=== PATIENT | male | born 1950 | race African-American/Black ===

== ENCOUNTER 2022-09-05 11:54 | Inpatient (IN) | payer BC, MEDICAID ==
[~2022-09-05] VITALS: Ht 170.2 cm; Wt 69.4 kg
[2022-09-05 12:05] VITALS: BP_SYST 111
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
--- NOTE | 2022-09-05 12:55 | NUR ---
MD DR RAZA AT BEDSIDE
[2022-09-05] MEDS ORDERED: MORPHINE 4 MG INJ. 4 MG/ML VIAL IVP ONE (13:00)
[2022-09-05 13:22] LABS: BASOPHILS % (AUTO) 0.3 % (0.0-2.0); HEMATOCRIT 46.2 % (36-54); MEAN CORPUSCULAR HEMOGLOBIN 31 pg (27-31); MEAN CORPUSCULAR HGB CONC 32 % (32-36); MEAN CORPUSCULAR VOLUME 97 fL (79.0-98.0); MONOCYTES # (AUTO) 1.3 K/uL (0.0-1.0); MONOCYTES % (AUTO) 8.6 % (1.7-9.3); NEUTROPHILS # (AUTO) 12.1 K/uL (1.8-7.7); NEUTROPHILS % (AUTO) 78.1 % (40.0-70.0); PLATELET COUNT (AUTO) 166 K/uL (130-430); RED BLOOD CELL COUNT(AUTO) 4.79 MIL/uL (4.2-6.2); RED CELL DISTRIBUTION WIDTH 13.9 % (9.0-15.0); WHITE BLOOD COUNT (AUTO) 15.5 K/uL (4.8-10.8)
[2022-09-05 13:27] LABS: CALCIUM 8.7 mg/dL (8.4-11.0); CREATININE 1.49 mg/dL (0.55-1.30)
[2022-09-05 13:31] LABS: BILIRUBIN,URINE NEGATIVE (NEGATIVE); BLOOD, URINE NEGATIVE (NEGATIVE); COLOR,URINE YELLOW (YELLOW); GLUCOSE,URINE NEGATIVE (NEGATIVE); KETONES,URINE NEGATIVE (NEGATIVE); LEUKOCYTE ESTERASE ,URINE 1+ (NEGATIVE); NITRITE, URINE NEGATIVE (NEGATIVE); PH,URINE 5.5 (5.0-8.0); PROTEIN URINE TRACE (NEGATIVE)
[2022-09-05 13:33] LABS: CLARITY/URINE SLIGHTLY HAZY (CLEAR)
[2022-09-05 13:38] LABS: BACTERIA,URINE FEW /HPF (None Seen); RBC,URINE 0-3 /HPF (0-3)
[2022-09-05] MEDS ORDERED: cefTRIAXone 1 GM in D5W 50 ML IV ONE (14:15)
[2022-09-05] MEDS ORDERED: KETOROLAC TROMETHAMINE 30 MG VIAL IVP ONE (15:00)
[2022-09-05] MEDS ORDERED: cefTRIAXone 1 GM VIAL ONE (15:05)
[2022-09-05] MEDS ORDERED: NACL 0.9% 1,000 ML IV ONE (15:15)
--- NOTE | 2022-09-05 16:33 | NUR ---
pt stated he takes no home meds
[2022-09-05] MEDS ORDERED: ONDANSETRON HCL 4 MG/2 ML VIAL IVP PRN (19:15)
[2022-09-05] MEDS ORDERED: DOCUSATE SODIUM 100 MG CAPSULE PO PRN (19:15)
[2022-09-05] MEDS ORDERED: MAGNESIUM SULFATE 50 ML IV PRN (19:15)
[2022-09-05] MEDS ORDERED: MORPHINE 2 MG/ML INJ. SYRINGE IVP PRN ×2 (19:15)
[2022-09-05] MEDS ORDERED: LORazepam 2 MG/ML VIAL IVP PRN (19:15)
[2022-09-05] MEDS ORDERED: ZOLPIDEM TARTRATE 5 MG TABLET PO PRN (19:15)
[2022-09-05] MEDS ORDERED: ACETAMINOPHEN 325 MG TABLET PO PRN (19:15)
[2022-09-05] MEDS ORDERED: MUPIROCIN 2% TOPICAL OINTMENT 22 GM NS PRN (19:15)
[2022-09-05] MEDS ORDERED: POTASSIUM CHLORIDE 20 MEQ TAB.PRT.SR PO PRN (19:15)
--- NOTE | 2022-09-05 19:21 | NUR ---
Admit bed requested Patient will be admitted to care of . Admitted to MEDSURG unit. Diagnosis ACUTE EPIDIDYMITIS Inpatient (Yes or No) Y Observation (Yes or No) N Orientation concerns or request close to nursing station (Yes or No) N Covid Status NEG On vent or bipap NO Isolation requirements NO Needs a sitter NO From Home (Yes or if No enter name of facility) Y Requires Dialysis (Yes or No) N Med Rec Completed (Yes of No) PENDING
--- NOTE | 2022-09-05 19:24 | NUR ---
REPORT GIVEN TO GUSTAVO. PT KATELYN.
--- NOTE | 2022-09-05 19:31 | NUR ---
Received report from DARREL Trevizo; assuming care of patient at this time.
--- NOTE | 2022-09-05 19:55 | NUR ---
Patient A/Ox4, VSS, ambulatory, resp even and unlabored. Patient resting comfortably in bed with safety precautions in place and connected to monitor. Nad noted at this time.
--- NOTE | 2022-09-05 22:42 | NUR ---
Report received from DARREL James for continuity of care. Patient stable condition. Alert and oriented x4. No neuro deficits. Respiration even and unlabored. Patient c/o groin issues. Patient oriented to hospital unit. Patient able to follow instructions and move from gurney to bed. Vital signs stable. Endorsed to DARREL Dela Cruz for continuity of care.
--- NOTE | 2022-09-06 01:00 | NUR ---
Patient sleeping comfortably in bed with safety precautions in place and connected to monitor. Nad noted at this time.
--- NOTE | 2022-09-06 02:25 | NUR ---
Patient will be admitted to care of Dr Appiah. Admitted to Med Surg unit. Will go to room 132C. Belongings list completed. Complete and up to date summary report printed. SBAR report given to DARREL Reyes at bedside with opportunity for questions.
[2022-09-06 02:30] VITALS: BP_SYST 116
--- NOTE | 2022-09-06 04:37 | NUR ---
RECEIVED PT FROM ED. PT AWAKE AND ORIENTED. C/O TESTICLE SWOLLEN AND PAIN. DX-LEFT TESTICULAR EPIDIDYMITIS AND UTI. SKIN DRY AND INTACT.V/S STABLE AFEBRILE. REFUSED FLU SHOT. PT STATED HE WALKS WITH CANE AT HOME. LIVES ALONE. H/L ON LEFT HAND. INFORMED PT TO CALL FOR ASSIST AND NOT TO GET OUT OF BED WITHOUT ASSIST.
[2022-09-06 06:26] LABS: HEMATOCRIT 43.2 % (36-54); HEMOGLOBIN 14.2 g/dL (14.0-18.0); MEAN CORPUSCULAR HEMOGLOBIN 31 pg (27-31); MEAN CORPUSCULAR HGB CONC 33 % (32-36); MEAN CORPUSCULAR VOLUME 96 fL (79.0-98.0); PLATELET COUNT (AUTO) 169 K/uL (130-430); RED BLOOD CELL COUNT(AUTO) 4.52 MIL/uL (4.2-6.2); RED CELL DISTRIBUTION WIDTH 13.6 % (9.0-15.0); WHITE BLOOD COUNT (AUTO) 21.4 K/uL (4.8-10.8)
--- NOTE | 2022-09-06 06:38 | NUR ---
CONSULTATION REASON FOR CONSULT- LEFT TESTICULAR EPIDIDYMITIS AND UTI CONSULT-DEDRA JAMIL REQUESTING KIET
[2022-09-06 07:07] LABS: CALCIUM 8.2 mg/dL (8.4-11.0); CREATININE 1.34 mg/dL (0.55-1.30)
[2022-09-06 08:00] VITALS: BP_SYST 98
[2022-09-06] MEDS: TAMSULOSIN HCL 0.4 MG CAP PO SCH (09:00)
[2022-09-06] MEDS: HEPARIN SODIUM,PORCINE 5,000 UNITS/ML VIAL SUBCUT SCH ×2 (09:00→22:05)
--- NOTE | 2022-09-06 09:13 | NUR ---
PATIENT SEEN BY PHYSICAL THERAPY Patient able to walk with assistance from physical therapist and walker. Patient states that he ambulates at home with a cane. Patient educated on fall precautions and is aware he will need to call for assist before ambulating to the restroom.
--- NOTE | 2022-09-06 09:54 | NUR ---
>>>PT NOTES<<< PT EVAL AND INITIAL TX COMPLETED. PLEASE REFER TO EVAL FOR DETAILS.
[2022-09-06 11:39] VITALS: BP_SYST 102
[2022-09-06 11:55] LABS: ATYPICAL LYMPHOCYTES % 7 % (0-0); BAND % (MANUAL) 12 % (0-6); BASOPHILS % (MANUAL) 0 % (0-2); EOSINOPHILS % (MANUAL) 0 % (0-7); LYMPHOCYTES % (MANUAL) 5 % (20-46); MONOCYTES % (MANUAL) 5 % (0-11)
[2022-09-06 11:56] LABS: WBC MORPHOLOGY TOXIC VACUOLATION
[2022-09-06] MEDS: NACL 0.9% 1,000 ML IV SCH (12:57)
[2022-09-06] MEDS: cefTRIAXone 1 GM in D5W 50 ML IV SCH (14:24)
[2022-09-06] MEDS: DOXYCYCLINE HYCLATE 100 MG CAPSULE PO SCH ×2 (14:50→22:06)
[2022-09-06 17:10] VITALS: BP_SYST 107
--- NOTE | 2022-09-06 17:31 | NUR ---
URINE SAMPLE SENT TO THE LAB Urine sample delivered to the lab.
--- NOTE | 2022-09-06 19:25 | NUR ---
CLOSING NOTE Patient in bed resting after eating dinner. No sign of distress and patient denies pain. Patient has been asleep for most of the shift. Patient cried when discussing his plan of care, attempted to talk with the patient with therapeutic communication but patient stated he did not want to talk at this time. Patient states that he "is never sick and this is a lot to handle". Comfort measures provided. IV is patent and running prescribed fluids. All needs met at this time and safety checks made. Endorsed to micro computer data processor nurse.
[2022-09-06 20:00] VITALS: BP_SYST 114
--- NOTE | 2022-09-06 20:00 | NUR ---
OPENING NOTE- PT'S SLEEPING. DENIED PAIN. IVF NS AT 80 ML/HR. V/S STABLE AFEBRILE.
[2022-09-07] MEDS: NACL 0.9% 1,000 ML IV SCH ×3 (00:39→17:46)
[2022-09-07 01:26] VITALS: BP_SYST 118
--- NOTE | 2022-09-07 06:50 | NUR ---
CLOSING NOTE- PT REMAINS STABLE. DENIED ANY DISTRESS. URINATED X 1 ONLY 250 ML OVER NIGHT. NS AT 80 ML/HR. REFUSED HEPARIN SUB-Q. ABLE TO TURN.
[2022-09-07 07:15] LABS: BASOPHILS % (AUTO) 0.3 % (0.0-2.0); EOSINOPHILS # (AUTO) 0.1 K/uL (0.0-0.4); EOSINOPHILS % (AUTO) 0.4 % (0.0-4.0); HEMATOCRIT 41.2 % (36-54); HEMOGLOBIN 13.6 g/dL (14.0-18.0); LYMPHOCYTES # (AUTO) 3.1 K/uL (1.0-5.5); LYMPHOCYTES % (AUTO) 18.3 % (20.5-51.5); MEAN CORPUSCULAR HEMOGLOBIN 32 pg (27-31); MEAN CORPUSCULAR HGB CONC 33 % (32-36); MEAN CORPUSCULAR VOLUME 96 fL (79.0-98.0); MONOCYTES # (AUTO) 1.3 K/uL (0.0-1.0); MONOCYTES % (AUTO) 7.6 % (1.7-9.3); NEUTROPHILS # (AUTO) 12.5 K/uL (1.8-7.7); NEUTROPHILS % (AUTO) 73.4 % (40.0-70.0); PLATELET COUNT (AUTO) 181 K/uL (130-430); RED BLOOD CELL COUNT(AUTO) 4.31 MIL/uL (4.2-6.2); RED CELL DISTRIBUTION WIDTH 13.6 % (9.0-15.0)
[2022-09-07 07:32] LABS: CALCIUM 8.2 mg/dL (8.4-11.0); CREATININE 1.08 mg/dL (0.55-1.30)
[2022-09-07 08:42] VITALS: BP_SYST 118
[2022-09-07] MEDS: TAMSULOSIN HCL 0.4 MG CAP PO SCH (09:51)
[2022-09-07] MEDS: DOXYCYCLINE HYCLATE 100 MG CAPSULE PO SCH ×2 (09:51→22:02)
[2022-09-07] MEDS: HEPARIN SODIUM,PORCINE 5,000 UNITS/ML VIAL SUBCUT SCH ×2 (09:52→22:04)
[2022-09-07 12:52] VITALS: BP_SYST 116
[2022-09-07] MEDS: cefTRIAXone 1 GM in D5W 50 ML IV SCH (13:04)
--- NOTE | 2022-09-07 16:12 | NUR ---
Dietitian Recommendations * Continue Cardiac diet, per MD * Encourage good PO intake, >85% meals consumed * NFPE next RD visit * If patient in unable to tolerate regular textures d/t lethargy, consider texture downgrade for ease of eating Please refer to nutrition assessment for details, thanks! Shannan Tanner MPH, RDN
[2022-09-07 16:24] VITALS: BP_SYST 117
--- NOTE | 2022-09-07 19:40 | NUR ---
Opening note Received patient resting in bed on side posture, eyes closed and no distress. Respirations unlabored on room air. IVF infusing via IV to Lt hand. Bed is locked in lowest position, side rails up 3x, bed alarm on and call light w/in reach.
[2022-09-07 20:00] VITALS: BP_SYST 131
--- NOTE | 2022-09-07 22:04 | NUR ---
Meds Scheduled meds given, patient swallowed tablet with water. Administered Heparin SQ and he tolerated. Emptied 200 ml brian urine from urinal. Safety precautions in place.
[2022-09-08 00:05] VITALS: BP_SYST 136
--- NOTE | 2022-09-08 02:49 | NUR ---
rounds, eyes closed Patient is resting in bed, eyes closed, no distress, nonlabored breathing. Safety precautions in place.
--- NOTE | 2022-09-08 06:00 | NUR ---
pain med, patient care Patient was provided with partial bed bath / CHG bath. New gown and bed linens provided. He was cooperative and assisted in turning. He was moaning and assessed for pain/discomfort. He replied he was in pain, moderate pain to scrotal area. Administered Morphine, wctm.
[2022-09-08 06:22] LABS: BASOPHILS # (AUTO) 0.1 K/uL (0.0-0.2); BASOPHILS % (AUTO) 0.5 % (0.0-2.0); EOSINOPHILS # (AUTO) 0.1 K/uL (0.0-0.4); EOSINOPHILS % (AUTO) 0.5 % (0.0-4.0); HEMATOCRIT 40.5 % (36-54); HEMOGLOBIN 13.4 g/dL (14.0-18.0); LYMPHOCYTES # (AUTO) 2.8 K/uL (1.0-5.5); MEAN CORPUSCULAR HEMOGLOBIN 31 pg (27-31); MEAN CORPUSCULAR HGB CONC 33 % (32-36); MEAN CORPUSCULAR VOLUME 95 fL (79.0-98.0); MONOCYTES % (AUTO) 7.8 % (1.7-9.3); NEUTROPHILS # (AUTO) 8.7 K/uL (1.8-7.7); NEUTROPHILS % (AUTO) 69.2 % (40.0-70.0); PLATELET COUNT (AUTO) 205 K/uL (130-430); RED BLOOD CELL COUNT(AUTO) 4.28 MIL/uL (4.2-6.2); RED CELL DISTRIBUTION WIDTH 13.3 % (9.0-15.0); WHITE BLOOD COUNT (AUTO) 12.6 K/uL (4.8-10.8)
[2022-09-08 06:55] LABS: CALCIUM 8.5 mg/dL (8.4-11.0); CREATININE 0.94 mg/dL (0.55-1.30)
[2022-09-08 07:58] VITALS: BP_SYST 137
[2022-09-08] MEDS: TAMSULOSIN HCL 0.4 MG CAP PO SCH (08:41)
[2022-09-08] MEDS: DOXYCYCLINE HYCLATE 100 MG CAPSULE PO SCH (08:41)
[2022-09-08] MEDS ORDERED: SULF1TAB48 PO (08:42)
[2022-09-08] MEDS: HEPARIN SODIUM,PORCINE 5,000 UNITS/ML VIAL SUBCUT SCH (08:43)
[2022-09-08] MEDS: NACL 0.9% 1,000 ML IV SCH (09:45)
--- NOTE | 2022-09-08 10:01 | NUR ---
PATIENT SAYS HE WILL CALL HIS RIDE FOR DISCHARGE.
--- NOTE | 2022-09-08 10:27 | NUR ---
PATIENT DISCHARGE TO HOME WITH A COPY OF DISCHARGE INSTRUCTIONS, VERBALIZES UNDERSTANDING OF PRESCRIPTION AT [facility]. INTACT [employer] GAU[employer] IV CATHETER REMOVAL FROM LEFT WRIST/HAND.
--- NOTE | 2022-09-09 16:04 | NUR ---
[phone]
== END 2022-09-08 10:15 | disposition home health service (06) | DRG 871 ==
LOC: SED 11:54 → STU 19:19 → SMU 22:50
PROVIDERS: ADMIT General Practice; ATTEND General Practice
DX: A41.9 Sepsis, unspecified organism (principal); N17.0 Acute kidney failure with tubular necrosis; E44.0 Moderate protein-calorie malnutrition; N39.0 Urinary tract infection, site not specified; Z20.822 Contact with and (suspected) exposure to COVID-19; F17.200 Nicotine dependence, unspecified, uncomplicated; N45.3 Epididymo-orchitis; N43.3 Hydrocele, unspecified; Z68.24 Body mass index [BMI] 24.0-24.9, adult; B96.20 Unspecified Escherichia coli [E. coli] as the cause of diseases classified elsewhere
CPT/HCPCS: 36415; 76770; 76870-TC; 80048; 81000; 83036; 83735; 85007; 85025; 85027; 87086; 87491; 96365; 96375; 97110-GP; 97116-GP; 97530-GP; 99285; J0696; J1644; J1885; J2270; J7060